=== PATIENT | male | born 1975 | race Hispanic/Latino ===

== ENCOUNTER 2022-09-24 09:10 | Emergency (ER) | payer MEDICAID, SELFPAY ==
--- NOTE | ~2022-09-24 | XR_ITS ---
EXAMINATION: XR chest 2V DATE: 09/24/2022 10:47 INDICATION: Left flank pain. Left chest pain. TECHNIQUE: Frontal and lateral views of the chest were obtained. COMPARISON: None. FINDINGS: The chest demonstrates clear lungs without pneumonia, pleural effusion, or pneumothorax. Th e heart size is normal. IMPRESSION: 1. No acute cardiopulmonary disease. Reviewed, dictated and finalized at location A. ES AND LAND SUPERVISOR
--- NOTE | 2022-09-24 09:59 | ECG_ITS ---
Measurements Intervals [place] Rate: 67 P: 43 DC: 159 QRS: -10 QRSD: 88 T: 32 QT: 344 QTc: 364 Interpretive Statements SINUS RHYTHM NORMAL ECG NO PREVIOUS ECG AVAILABLE FOR COMPARISON Electronically Signed On 09-24-2022 10:19:19 ESCROW MANAGER by Dinesh Santos D.O.
[2022-09-24 10:01] VITALS: BP 153/93; PULSE 70; RESP 18; TEMP 36.6; O2SAT 100
[2022-09-24 10:22] LABS: Basophils Absolute Auto 0.1 K/mm3 (0.0-0.1); Basophils Percent Auto 0.8 % (0.2-1.2); Eosinophils Absolute Auto 0.6 K/mm3 (0-0.3); Eosinophils Percent Auto 7.6 % (0-4.4); Hematocrit 40.6 % (42.0-52.0); Hemoglobin 15.1 g/dL (14.0-18.0); Immature Granulocyte Absolute 0.03 K/mm3 (0.00-0.031); Immature Granulocyte Percent A 0.4 % (0-0.5); Lymphocytes Absolute Auto 1.87 K/mm3 (0.9-3.2); Lymphocytes Percent Auto 25.8 % (18.3-44.2); Mean Corpuscular HGB Conc 37.2 g/dl (32-36); Mean Corpuscular Volume 88.8 fl (80-100); Mean Platelet Volume 10.7 fl (7.4-10.4); Monocytes Absolute Auto 0.5 K/mm3 (0.1-0.6); Monocytes Percent Auto 6.6 % (2.6-8.5); Neutrophils Absolute Auto 4.3 K/mm3 (1.3-6.7); Neutrophils Percent Auto 58.8 % (45.5-73.1); Platelet Count Result 205 k/mm3 (150-375); Red Blood Count 4.57 M/mm3 (4.6-6.20); Red Cell Distribution Width 12.7 % (11.5-14.5); White Blood Count 7.3 K/mm3 (4.5-10.0)
[2022-09-24 10:38] LABS: Alanine Aminotransferase 39 U/L (6-50); Albumin Level 4.8 g/dL (3.5-5.1); Alkaline Phosphatase 74 U/L (38-126); Anion Gap 8 mmol/L (8-16); Aspartate Amino Transferase 25 U/L (17-59); Bilirubin,Total 0.9 mg/dL (0.2-1.3); Blood Urea Nitrogen 9 mg/dL (9-20); Calcium 8.8 mg/dL (8.4-10.2); Carbon Dioxide 25 mmol/L (22-30); Chloride 105 mmol/L (98-107); Estimated Glomerular Filt Rate > 60; Glucose 117 mg/dL (65-110); Lipase 48 U/L (23-300); Potassium 3.9 mmol/L (3.4-5.0); Sodium 138 mmol/L (137-145)
[2022-09-24 10:50] LABS: Troponin I < 0.012 ng/mL (0.000-0.034)
[2022-09-24 10:51] LABS: Prothrombin Time 13.1 Seconds (11.1-14.7)
[2022-09-24 10:52] LABS: Partial Thromboplastin Time 25.2 SECONDS (22.3-36.8)
[2022-09-24 10:58] LABS: Add Urine Microscopic? NO; Appearance Urine Clear (Clear); Bilirubin Urine Negative (Negative); Blood Urine Negative (Negative); Color Urine Yellow (Yellow); Glucose Urine UA Negative (Negative); Ketones Urine Negative (Negative); Leukocyte Esterase Ur Negative LEU/UL (Negative); Nitrate Urine Negative (Negative); Protein Urine Negative (Negative); Specific Grav Ur 1.015 (1.001-1.035); Urobilinogen Urine 0.2 mg/dL (<2.0); pH Urine 7.5 (5.0-9.0)
[2022-09-24 12:06] VITALS: BP 160/90; PULSE 65; RESP 16; TEMP 36.4; O2SAT 99
[2022-09-24 13:48] LABS: Troponin I < 0.012 ng/mL (0.000-0.034)
[2022-09-24 16:23] VITALS: BP 134/85; PULSE 68; RESP 17; TEMP 36.4; O2SAT 98
[2022-09-24 16:51] LABS: Troponin I < 0.012 ng/mL (0.000-0.034)
== END 2022-09-24 18:13 | disposition left against medical advice (07) ==
LOC: ANHED 18:35
PROVIDERS: Emergency Provider Emergency Medicine
DX: M54.50 Low back pain, unspecified (principal)
CPT/HCPCS: 36415; 71046; 80053; 81003; 83690; 84484; 85025; 85610; 85730; 93005; 99199

== ENCOUNTER 2022-09-24 19:30 | Emergency (ER) | payer MEDICAID, SELFPAY ==
[2022-09-24 19:47] VITALS: BP 140/97; PULSE 76; RESP 18; TEMP 36.5; O2SAT 99
--- NOTE | 2022-09-24 19:55 | PC.NURSE ---
Pt reports to this RN using interpretive services that he is tired and hungry and wants to go home. States he will come back in the morning when it is less busy.
== END 2022-09-24 20:07 | disposition left against medical advice (07) ==
DX: M54.9 Dorsalgia, unspecified (principal)
CPT/HCPCS: 99199

== ENCOUNTER 2022-09-25 08:24 | Emergency (ER) | payer MEDICAID, SELFPAY ==
[2022-09-25 08:35] VITALS: BP 147/94; PULSE 69; RESP 20; TEMP 36.7; O2SAT 99
--- NOTE | 2022-09-25 08:38 | ECG_ITS ---
Measurements Intervals [place] Rate: 66 P: -11 NC: 143 QRS: -13 QRSD: 96 T: -17 QT: 359 QTc: 378 Interpretive Statements SINUS RHYTHM BASELINE ARTIFACT- II, III, AVR, AVL, AVF, V4 NORMAL ECG COMPARED TO ECG 09/24/2022 10:02:43 NO SIGNIFICANT CHANGES Electronically Signed On 09-25-2022 9:06:48 SAMMYING MACHINE OPERATOR by Dinesh Santos D.O.
--- NOTE | 2022-09-25 09:57 | ED.GENADULT ---
HPI - General Adult General Chief complaint: Chest Pain Stated complaint: chest and back pain Time Seen by Provider: 09/25/22 08:27 History of Present Illness HPI narrative: Patient is a 47-year-old male who presents ER with a multitude of complaints. Patient reports yesterday he came to the hospital because he was having left-sided low back pain that then radiated up into his upper back into his left chest. It went away after he took diclofenac. No exertional chest discomfort or shortness of breath. Denies fevers or chills or sweats. Patient also reports new tenderness in his right testicle that began yesterday. She reports his urine is dark in color and he is concerned he has an infection. No urinary frequency urgency or dysuria. Patient also reports that when he wipes after having a sticky bowel movement there is some pink blood on his toilet paper. No history of hemorrhoids. No tenderness around the rectum. Related Data Allergies Allergy/AdvReac Type Severity Reaction Status Date / Time No Known Allergies Allergy Verified 09/25/22 09:06 Review of Systems Review of Systems: All systems reviewed & are unremarkable except as noted in HPI and below Constitutional: Constitutional: Denies chills, Denies fatigue and Denies fever(s) Cardiovascular: Cardiovascular: Reports chest pain, Denies rapid heart rate and Reports radiating jaw, neck or arm pain Respiratory: Respiratory: Denies cough, Denies dyspnea and Denies wheezing Gastrointestinal: Gastrointestinal: Denies abdominal pain, Denies nausea and Denies vomiting Genitourinary: Genitourinary: Denies hematuria, Denies dysuria, Denies penile discharge and Reports testicular pain Musculoskeletal: Musculoskeletal: Reports back pain, Denies arthralgias and Denies joint swelling PMFSH Past Medical History Medical History (Updated 09/25/22 @ 10:02 by Jose Juan Linder MD) Healthy adult male Surgical History Surgical History (Updated 09/25/22 @ 10:02 by Jose Juan Linder MD) No history of previous surgery Exam Narrative: GENERAL: Well-appearing, well-nourished, and in no acute distress. HEAD: Normocephalic, atraumatic. ENT: Mucous membranes moist. CHEST: Clear to auscultation. No respiratory distress. Tender palpation left posterior chest wall. HEART: Regular rate and rhythm. Normal peripheral pulses. ABDOMEN: Soft, nontender, nondistended. Rectal exam without evidence of rectal fissure or hemorrhoid or bleeding. Back: No reproducible midline tenderness of the T/L spine. No paraspinal muscular tenderness. EXTREMITIES: Normal range of motion. No edema. SKIN: Warm, dry, no rash. NEURO: Alert and oriented x3. PSYCH: Normal mood and affect. Course Course Emergency Course: I reviewed the patient's blood work from yesterday 09/24/2022 as well as imaging and EKGs. I do not feel patient has any cardiac abnormality and that symptoms are related to musculoskeletal discomfort. Discussed the treatment plan with him which she verbalized understanding of. Vital Signs Vital signs: Vital Signs Temperature 98.0 F 09/25/22 08:35 Pulse Rate 69 09/25/22 08:35 Respiratory Rate 20 09/25/22 08:35 Blood Pressure 147/94 H 09/25/22 08:35 Pulse Oximetry 99 09/25/22 08:35 Oxygen Delivery Room Air 09/25/22 08:35 Temperature 98.0 F 09/25/22 08:35 Pulse Rate 69 09/25/22 08:35 Respiratory Rate 20 09/25/22 08:35 Blood Pressure 147/94 H 09/25/22 08:35 Pulse Oximetry 99 09/25/22 08:35 Oxygen Delivery Room Air 09/25/22 08:35 Medical Decision Making Vital Signs Vital Signs: Vital Signs Temperature 98.0 F 09/25/22 08:35 Pulse Rate 69 09/25/22 08:35 Respiratory Rate 20 09/25/22 08:35 Blood Pressure 147/94 H 09/25/22 08:35 Pulse Oximetry 99 09/25/22 08:35 Oxygen Delivery Room Air 09/25/22 08:35 Temperature 98.0 F 09/25/22 08:35 Pulse Rate 69 09/25/22 08:35 Respiratory Rate 20 09/25/22 08:35 Blood Pre
[2022-09-25 10:17] VITALS: PULSE 80
== END 2022-09-25 10:19 | disposition home or self-care (01) ==
PROVIDERS: Emergency Provider Emergency Medicine
DX: R07.89 Other chest pain (principal)
CPT/HCPCS: 93005; 99283

== ENCOUNTER 2023-03-21 18:09 | Emergency (ER) | payer MEDICAID, SELFPAY ==
--- NOTE | ~2023-03-21 | CT_ITS ---
EXAMINATION: CT abdomen pelvis w con DATE: 03/21/2023 21:10 INDICATION: RLQ tenderness and pain TECHNIQUE: Computed tomography (CT) of the abdomen and pelvis was performed with 100 mL Omnipaque-350 intravenous contrast. Automated exposure control and iterative reconstruction technique were employe d. The dose-length product was 702.25 mGy-cm. COMPARISON: None. FINDINGS: Lower thorax: Bilateral dependent atelectasis and basilar atelectasis/scar. Liver: Normal. Biliary/Gallbladder: Gallbladder is partially contracted. No stones or inflammatory change. No bile d uct dilation. Pancreas: No mass or duct dilation. Spleen: Normal. Adrenals:No mass. Kidneys: No mass, stone, or hydronephrosis. GI tract: No small or large bowel dilation. Normal appendix. Mesentery/Peritoneum: No ascites, mass, or free air. Retroperitoneum: No mass. Pelvis: Pelvic organs are within normal limits. Soft Tissues: Soft tissues and body wall unremarkable. Bones: No acute osseous finding. IMPRESSION: No acute abdominopelvic process detected. Reviewed, dictated and finalized at location K.
--- NOTE | ~2023-03-21 | US_ITS ---
EXAMINATION: US scrotum doppler DATE: 03/21/2023 21:00 INDICATION: R testicular pain and swelling . TECHNIQUE: Grayscale and Doppler ultrasound images of the testes were obtained. COMPARISON: None. FINDINGS: The right testis measures 4.9 x 2.0 x 3.0 cm. The left testis measures 3.0 x 1.7 x 2.4 cm. No testicular mass. There is increased flow in the right testis. The right epididymis contains cysts, with slightly increased vascular flow. The left epididymis contains cysts, with normal vascular flow . There is no varicocele or hydrocele. IMPRESSION: Enlarged right testis, with hypervascularity of the right testis and epididymis, which may represent epididymoorchitis in the appropriate clinical context. Reperfusion after intermittent torsion would p resent with similar imaging findings but would defer from epididymoorchitis in clinical presentation. Reviewed, dictated and finalized at location K. IMPRESSION: Enlarged right testis, with hypervascularity of the right testis and epididymis , which may represent epididymoorchitis in the appropriate clinical context. Re perfusion after intermittent torsion would present with similar imaging finding s but would defer from epididymoorchitis in clinical presentation.
[2023-03-21 18:24] VITALS: BP 141/84; PULSE 90; RESP 18; TEMP 36.6; O2SAT 98
--- NOTE | 2023-03-21 19:45 | ED.MALEGU ---
HPI - Male Genitourinary General Chief complaint: Urogenital-Male Stated complaint: lower abdominal pain, testicle pain Time Seen by Provider: 03/21/23 19:17 History of Present Illness HPI Narrative: Patient is a 47-year-old male presenting with right lower quadrant pain. 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 Patient states that for the last 3 to 5 days he has had right lower quadrant pain as well as right testicular pain. States that his right testicle feels swollen compared to the left. States that he knows lots of people in [place] have problems with their prostate so this is what he is concerned about. He denies dysuria or hematuria. He denies chest pain or shortness of breath. No fevers or cough. No vomiting or diarrhea. Related Data Allergies Allergy/AdvReac Type Severity Reaction Status Date / Time No Known Allergies Allergy Verified 09/25/22 09:06 Review of Systems Review of Systems: All systems reviewed & are unremarkable except as noted in HPI and below PMFSH Past Medical History Medical History Healthy adult male Surgical History Surgical History No history of previous surgery Exam Narrative: GENERAL: Well-appearing, well-nourished, and in no acute distress. HEAD: Normocephalic, atraumatic. EYES: PERRLA and EOMI. ENT: Nares clear, no rhinorrhea or epistaxis. Mucous membranes moist. NECK: Supple. CHEST: Clear to auscultation. No respiratory distress. HEART: Regular rate and rhythm. No murmur heard. Normal peripheral pulses. ABDOMEN: Soft, +RLQ tenderness, no guarding or rebound; R testicle slightly larger than the left testicle, mild tenderness with palpation, normal cremasteric reflexes EXTREMITIES: Normal range of motion. No edema. SKIN: Warm, dry, no rash. NEURO: No focal deficits. Alert and oriented x3. PSYCH: Normal mood and affect. Course Vital Signs Vital signs: Vital Signs Temperature 97.9 F 03/21/23 18:24 Pulse Rate 90 03/21/23 18:24 Respiratory Rate 18 03/21/23 18:24 Blood Pressure 141/84 H 06/30/23 18:24 Pulse Oximetry 98 03/21/23 18:24 Oxygen Delivery Room Air 03/21/23 18:24 Temperature 97.9 F 03/21/23 18:24 Pulse Rate 64 03/21/23 23:28 Respiratory Rate 16 03/21/23 23:28 Blood Pressure 149/95 H 03/21/23 23:28 Pulse Oximetry 100 03/21/23 23:28 Oxygen Delivery Room Air 03/21/23 18:24 MDM - Male Genitourinary MDM Narrative Medical decision making narrative: Patient is a 47-year-old male presenting with right lower quadrant and right testicular pain for a couple of days. Vitals are within normal limits. Exam is remarkable for the above. Plan for blood work, ultrasound, CT abdomen pelvis, fluids, Toradol. Ultrasound of the testicles shows an enlarged right testis with hypervascularity of the right testis and epididymis. May represent epididymo orchitis versus reperfusion after intermittent torsion. CT abdomen pelvis shows no acute abnormalities. Blood work is unremarkable. I had an extensive discussion with the patient regarding his symptoms and pain. He states that its not actually the entire testicle that hurts. He states that he will sometimes notice a swelling that feels like a vessel and this is the part that hurts. States that currently his pain is minimal. Do not feel that the findings on of the ultrasound are sales representative health insurance of intermittent torsion given description and his very reassuring exam. We will get him started on levofloxacin for epididymitis and advised close urology follow-up. Also recommended PCP follow-up. Strict return precautions given. Patient voiced understanding and is agreeable with plan. Discharged in stable condition. Differential Diagnosis Differential diagnosis: Likely urinary tract infection, urethritis and epididymitis Medical Records Attest
[2023-03-21 20:14] LABS: Basophils Percent Auto 0.5 % (0.2-1.2); Eosinophils Absolute Auto 0.1 K/mm3 (0-0.3); Hematocrit 37.7 % (42.0-52.0); Hemoglobin 13.7 g/dL (14.0-18.0); Immature Granulocyte Absolute 0.01 K/mm3 (0.00-0.031); Immature Granulocyte Percent A 0.2 % (0-0.5); Lymphocytes Absolute Auto 1.72 K/mm3 (0.9-3.2); Lymphocytes Percent Auto 28.8 % (18.3-44.2); Mean Corpuscular HGB Conc 36.3 g/dl (32-36); Mean Corpuscular Hemoglobin 33.6 pg (26-34); Mean Corpuscular Volume 92.4 fl (80-100); Mean Platelet Volume 10.9 fl (7.4-10.4); Monocytes Absolute Auto 0.6 K/mm3 (0.1-0.6); Monocytes Percent Auto 9.7 % (2.6-8.5); Neutrophils Absolute Auto 3.5 K/mm3 (1.3-6.7); Neutrophils Percent Auto 58.8 % (45.5-73.1); Platelet Count Result 180 k/mm3 (150-375); Red Blood Count 4.08 M/mm3 (4.6-6.20); Red Cell Distribution Width 13.3 % (11.5-14.5)
[2023-03-21 20:16] LABS: Appearance Urine Clear (Clear); Bilirubin Urine Negative (Negative); Blood Urine Negative (Negative); Color Urine Yellow (Yellow); Glucose Urine UA Negative (Negative); Ketones Urine Negative (Negative); Leukocyte Esterase Ur Negative LEU/UL (Negative); Nitrate Urine Negative (Negative); Protein Urine Negative (Negative); Specific Grav Ur 1.021 (1.001-1.035); pH Urine 6.5 (5.0-9.0)
[2023-03-21] MEDS: SODIUM CHLORIDE 0.9% IV 1,000 ML 999 ML IV CONT (20:27)
[2023-03-21] MEDS: KETOROLAC 15 MG/ML VIAL (*BKC) IV PUSH (20:27)
[2023-03-21 20:43] LABS: Add Urine Microscopic? NO
[2023-03-21 20:46] LABS: Alanine Aminotransferase 42 U/L (6-50); Albumin Level 4.3 g/dL (3.5-5.1); Alkaline Phosphatase 80 U/L (38-126); Anion Gap 7 mmol/L (8-16); Aspartate Amino Transferase 27 U/L (17-59); Bilirubin,Total 0.8 mg/dL (0.2-1.3); Blood Urea Nitrogen 12 mg/dL (9-20); Calcium 8.5 mg/dL (8.4-10.2); Carbon Dioxide 29 mmol/L (22-30); Chloride 105 mmol/L (98-107); Estimated CRCL calculation 107 ml/min; Estimated Glomerular Filt Rate > 60; Glucose 128 mg/dL (65-110); Lipase 94 U/L (23-300); Potassium 3.3 mmol/L (3.4-5.0); Sodium 141 mmol/L (137-145)
[2023-03-21] MEDS: SULFAMETHOXAZOLE/TRIMETHOPRIM 800/160 MG DS TABLET 1 TAB PO (22:35)
[2023-03-21] MEDS: levoFLOXacin 500 MG TABLET PO (22:35)
[2023-03-21 23:28] VITALS: BP 149/95; PULSE 64; RESP 16; O2SAT 100
== END 2023-03-21 23:30 | disposition home or self-care (01) ==
PROVIDERS: Emergency Provider Emergency Medicine
DX: N45.3 Epididymo-orchitis (principal)
CPT/HCPCS: 36415; 74177; 76870; 80053; 81003; 83690; 85025; 87491; 87591; 93976; 96361; 96374; 99284; A9270; J1885; J7030; Q9967

== ENCOUNTER 2023-08-26 01:56 | Day surgery (SDC) | payer MEDICAID, SELFPAY ==
[2023-08-11 14:00] VITALS: BMI 33.0
--- NOTE | 2023-08-11 14:23 | PC.NURSE ---
Pre Op Endoscopy PAT phone call completed using briquette molder service. In Home Sales Representative #[id number].
--- NOTE | 2023-08-22 11:52 | SUR.PREOP ---
Patient called regarding upcoming procedure. Reviewed preop instructions, appointment times, and procedure prep.
--- NOTE | 2023-08-26 09:46 | PM.HPGS ---
History of Present Illness History of Present Illness Consent: Risks, benefits, and alternatives have been discussed and questions answered. Patient agrees to proceed with procedure. Chief complaint: neoplasm screening Narrative: Kashif Hernández is a 48 year old male here for first screening colonoscopy, few times noted blood after wiping Review of Systems Constitutional: Constitutional: Denies headache(s) and Denies weakness Eyes: Eyes: Denies blurry vision ENT: Reports Normal hearing present, Denies headache(s) and Denies neck pain Cardiovascular: Cardiovascular: Denies chest pain and Denies dyspnea Respiratory: Respiratory: Denies dyspnea Gastrointestinal: Gastrointestinal: Reports no additional gastrointestinal complaints Genitourinary: Genitourinary: Denies dysuria Musculoskeletal: Musculoskeletal: Denies neck pain Integumentary/Breasts: Skin/Breast: Denies dry skin Neurologic: Reports Normal hearing present, Denies headache(s) and Denies weakness Psychiatric: Psychiatric: Denies anxiety Endocrine: Endocrine: Denies change in body appearance Hematologic/Lymphatic: Hematologic/Lymphatic: Denies easy bleeding Allergic/Immunologic: Allergic/Immunologic: Denies urticaria PMF Past Medical History Medical History (Updated 08/26/23 @ 09:47 by Joshua Cai MD) Colon cancer screening Healthy adult male Surgical History Surgical History No history of previous surgery Social History Social History Smoking status: Former smoker Tobacco type: cigarettes Alcohol intake: current Drinks per week: 2 Substance use type: does not use Living arrangements: with family Spiritual care concerns: No Meds Home Medications and Allergies Home Medications Medication Instructions Recorded Confirmed Type No Home Medications 08/11/23 08/26/23 History Allergies Allergy/AdvReac Type Severity Reaction Status Date / Time No Known Allergies Allergy Verified 08/26/23 09:44 Exam Const: General: comfortable and no acute distress HENMT: Face/Nose/Sinus: Normal nares present Eyes: General: appearance normal, both eyes and all related structures Neck: Neck: no JVD Resp: Auscultation: clear to auscultation bilaterally Cardio: Rate: regular rate Rhythm: regular rhythm GI: Inspection: non-distended GI Palp: Yes Soft to palpation Skin: General skin exam: normal color Neuro: General: gait normal Speech: normal speech Extrem: General: normal to inspection Psych: Mental Status: mental status grossly normal Assessment and Plan Assessment and plan (1) Colon cancer screening: Code(s): Z12.11 - Encounter for screening for malignant neoplasm of colon Status: Acute Assessment and Plan: colonoscopy
[2023-08-26] MEDS: LACTATED RINGERS 1,000 ML 150 ML IV CONT (09:51)
[2023-08-26 09:53] VITALS: BP 151/99; PULSE 71; RESP 17; TEMP 36.1; O2SAT 100; BMI 31.2
--- NOTE | 2023-08-26 09:56 | WPDANESEPPF ---
Anes - Initial Pre Proc Eval Procedure: Operation Date: 08/26/23 10:30 Proposed Procedures p Screening Colonoscopy - Joshua Cai MD Date/Time: 08/26/23 09:56 Surgeon: Joshua Cai MD Pre Op Diagnosis: neoplasm screening Patient Data Age: 48 Gender: M Height: 1.63 m Weight: 82.6 kg Last Vital Signs Temp 96.9 F L 08/26/23 09:53 Pulse 71 08/26/23 09:53 Resp 17 08/26/23 09:53 BP 151/99 H 08/26/23 09:53 Pulse Ox 100 08/26/23 09:53 O2 Del Method Room Air 08/26/23 09:53 Allergies Allergy/AdvReac Type Severity Reaction Status Date / Time No Known Allergies Allergy Verified 08/26/23 09:44 Home Medications Medication Instructions Recorded Confirmed Type No Home Medications 08/11/23 08/26/23 History Patient hx anesthesia problems: none Family hx anesthesia problems: none Results Review: All pre-operative results and documents have been reviewed as part of the pre-operative evaluation. [facility] Past Medical History Medical History (Updated 08/26/23 @ 09:47 by Joshua Cai MD) Colon cancer screening Healthy adult male Surgical History Surgical History No history of previous surgery Social History Social History Smoking status: Former smoker Tobacco type: cigarettes Alcohol intake: current Drinks per week: 2 Substance use type: does not use Living arrangements: with family Spiritual care concerns: No Anes - Eval Final PreProcedure Day of Procedure 08/26/23 09:56 Patient weight: obese Heart: regular rate and rhythm Lungs: clear to auscultation Airway: Mallampati scale class II Neurological: alert and oriented Last oral intake: >/= 8 hours ASA classification: II Emergent: no Anesthetic plan: proceed Anesthesia type and monitoring: general GIVS Results Review: All pre-operative results and documents have been reviewed as part of the pre-operative evaluation. Informed Consent: The patient's anesthetic plan and its attendant risks and benefits were discussed with the patient/family/POA. Questions were solicited and answers provided to the satisfaction of the patient/family/POA.
[2023-08-26 10:11] VITALS: BP 115/74; PULSE 74; RESP 20; O2SAT 96
[2023-08-26 10:21] VITALS: BP 122/83; PULSE 62; RESP 20; O2SAT 100
[2023-08-26 10:31] VITALS: BP 123/88; PULSE 58; RESP 18; O2SAT 100
--- NOTE | 2023-08-26 10:34 | SUR.PHASEII ---
1022: DR MCGEE SPOKE WITH PT AND EXPLAINED PROCEDURE RESULTS, POST OP INSTRUCTIONS, AND FOLLOW UP. PT STATES UNDERSTANDING.
== END 2023-08-26 11:08 | disposition home or self-care (01) ==
PROVIDERS: Visit Provider Internal Medicine Gastroenterology
PROC: 0DJD8ZZ Inspection of Lower Intestinal Tract, Via Natural or Artificial Opening Endoscopic (ICD-10-PCS; CPT 45378; principal; 2023-08-26 10:30)
DX: Z12.11 Encounter for screening for malignant neoplasm of colon (principal); K64.8 Other hemorrhoids; E66.9 Obesity, unspecified; Z68.31 Body mass index [BMI] 31.0-31.9, adult; Z87.891 Personal history of nicotine dependence
CPT/HCPCS: 45378; J2704; J7120